=== PATIENT | female | born 1975 | race Two or more races ===

== ENCOUNTER 2017-07-17 10:16 | Emergency (ER) | payer OTHER ==
[2017-07-17 10:25] VITALS: PULSE 70; TEMP 97.6; BMI 30.1
--- NOTE | 2017-07-17 11:33 | PDOC ---
History of Present Illness - General Chief Complaint: Vaginal Bleeding Stated Complaint: VAGINAL BLEEDING (8 WKS ) Time Seen by Provider: 07/17/17 10:45 History Source: Patient Exam Limitations: No Limitations - History of Present Illness Travel History: No Initial Comments: 07/17/17 11:29 42-year-old female approximately 8 weeks presents with vaginal spotting for the last 2 days upon wiping after urination. Patient denies abdominal pain but does state mild low back pain which she describes an aching pressure. Patient denies passing of a clot, urinary complaints, nausea, fever, diarrhea, or recent sexual intercourse. Patient states is followed by Dr. Wilfrid Vargas at the clinic and did not have an ultrasound or initial visit as of yet Timing/Duration: reports: intermittent Quality: reports: mild Abdominal Pain Onset Location: reports: other (back) Pain Radiation: reports: no radiation Activities at Onset: reports: none Aggravating Factors: improves with: None Alleviating Factors: improves with: None Past History - Travel Traveled outside of the country in the last 30 days: No Close contact w/someone who was outside of country & ill: No - Past Medical History Allergies/Adverse Reactions: Allergies Allergy/AdvReac Type Severity Reaction Status Date / Time No Known Allergies Allergy Verified 07/17/17 10:25 Home Medications: Ambulatory Orders NK [No Known Home Medication] 07/17/17 COPD: No - Suicide/Smoking/Psychosocial Hx Smoking History: Never smoked Patient Lives Alone: No Lives with/in: spouse/SO Review of Systems - Review of Systems Able to Perform ROS?: No Constitutional: No: Symptoms Reported ABD/GI: No: Symptoms Reported : Yes: Discharge Musculoskeletal: Yes: Back Pain (low) Hematologic/Lymphatic: No: Symptoms Reported *Physical Exam - Vital Signs Last Vital Signs Temp Pulse Resp BP Pulse Ox 97.6 F 70 18 127/72 100 07/17/17 10:23 07/17/17 10:23 07/17/17 10:23 07/17/17 10:23 07/17/17 10:23 - Physical Exam General Appearance: Yes: Nourished, Appropriately Dressed. No: Apparent Distress HEENT: negative: Pale Conjunctivae Respiratory/Chest: positive: Lungs Clear, Normal Breath Sounds. negative: Respiratory Distress, Accessory Muscle Use Cardiovascular: positive: Regular Rhythm, Regular Rate. negative: Murmur Female Pelvic Exam: positive: cervical os closed, adnexal tenderness, vaginal bleeding (scant pinkish red). negative: CMT Gastrointestinal/Abdominal: positive: Soft. negative: Tenderness Extremity: positive: Normal Capillary Refill. negative: Pedal Edema Integumentary: positive: Normal Color, Warm, Moist Neurologic: positive: Motor Strength 5/5 (ambulatory) ED Treatment Course - LABORATORY CBC & Chemistry Diagram: 07/17/17 12:18 07/17/17 11:43 - RADIOLOGY Radiology Studies Ordered: Category Date Time Status <14WKS US [US] Stat Ultrasound 07/17/17 11:27 Ordered Medical Decision Making - Medical Decision Making 07/17/17 11:32 Patient currently 8 weeks with vaginal spotting for the past 2 days. Patient exam had scant pinkish red blood in the vault without clots. Patient had no abdominal pain. Patient ordered for the hCG, CBC, comp, urinalysis, type and screen and ultrasound. 07/17/17 13:40 Laboratory Tests 07/17/17 07/17/17 07/17/17 11:43 11:43 11:43 WBC Hgb Hct Plt Count Sodium 138 Potassium 3.7 Chloride 105 Carbon Dioxide 27 Anion Gap 6 L BUN 12 Creatinine 0.6 Random Glucose 86 AST 12 L ALT 18 Albumin 3.7 Beta HCG, Quant Urine Ketones Negative Urine Blood Negative Urine Nitrite Negative Urine Urobilinogen Negative Ur Leukocyte Esterase Pending Blood Type O POSITIVE Antibody Screen Negative 07/17/17 07/17/17 11:43 12:18 WBC 5.4 Hgb 13.6 Hct 39.8 Plt Count 182 Sodium Potassium Chloride Carbon Dioxide Anion Gap BUN Creatinine Random Glucose AST ALT Albumin Beta HCG, Quant 76214.0 Urine Ketones Urine Blood Urine Nitrite Urine Urobilinogen Ur Leukocyte Esterase Blood Type Antibody Screen Awaiting U/S 07/17/17 14:51 U/s showed an interuterine gestational sac with no pole measuring 6 weeks and 6 days. Findings suggestive of blighted ovum vs missed . 07/17/17 15:46 Pt has appt on friday. Pt given u/s copies and labwork *DC/Admit/Observation/Transfer Diagnosis at time of Disposition: Vaginal bleeding in , Threatened - Discharge Dispostion Disposition: HOME Condition at time of disposition: Good - Referrals Referrals: Tena Yuen [Nurse Practitioner] - - Patient Instructions Printed Discharge Instructions: DI for Threatened Additional Instructions: Please take copies of labwork and sonogram results with you. Print Language: [place]
[2017-07-17 12:43] LABS: BASOPHIL 0.3 % (0-2.0); EOSINOPHIL 0.5 % (0-4.5); MCH 29.9 pg (25.7-33.7); MCHC 34.2 g/dl (32.0-36.0); MEAN CELL VOLUME 87.4 fl (80-96); MEAN PLT VOLUME 9.5 fl (7.5-11.1); NEUTROPHILS 71.3 % (42.8-82.8); PLATELET COUNT 182 K/MM3 (134-434); RDW 13.2 % (11.6-15.6); WHITE BLOOD COUNT 5.4 K/mm3 (4.0-10.0)
[2017-07-17 12:47] LABS: URINE APPEARANCE CLEAR; URINE BILIRUBIN NEGATIVE (NEGATIVE); URINE BLOOD NEGATIVE (NEGATIVE); URINE COLOR LTYELLOW; URINE GLUCOSE (UA) NEGATIVE (NEGATIVE); URINE KETONE NEGATIVE (NEGATIVE); URINE NITRITE NEGATIVE (NEGATIVE); URINE PROTEIN NEGATIVE (NEGATIVE); URINE UROBILINOGEN NEGATIVE mg/dL (0.2-1.0)
[2017-07-17 12:58] LABS: ALBUMIN 3.7 g/dl (3.4-5.0); ANION GAP 6 (8-16); BILIRUBIN,TOTAL 0.4 mg/dL (0.2-1.0); CALCIUM 8.9 mg/dL (8.5-10.1); CO2 27 mmol/L (21-32); CREATININE 0.6 mg/dL (0.55-1.02); GLUCOSE,RANDOM 86 mg/dL (74-106); SGOT/AST 12 U/L (15-37); SGPT/ALT 18 U/L (12-78)
[2017-07-17 12:59] LABS: ALK PHOS 89 U/L (45-117)
[2017-07-17 16:03] VITALS: BP 116/62
[2017-07-17 18:41] LABS: URINE LEUK ESTERASE Negative (NEGATIVE)
== END 2017-07-17 16:03 | disposition home or self-care (01) ==
LOC: JER 10:16
DX: O20.0 Threatened abortion (principal); Z3A.01 Less than 8 weeks gestation of pregnancy
CPT/HCPCS: 36415; 76801-TC; 76817-TC; 80053; 81003; 84702; 85025; 86850; 86900; 86901; 87086; 99283-25